=== PATIENT | male | born 1960 | race Caucasian/White ===

== ENCOUNTER 2017-05-13 16:47 | Observation (INO) | payer MEDICAID ==
[~2017-05-13] VITALS: Ht 180.3 cm; Wt 58.0 kg
[~2017-05-13 16:47] MED LIST: ALBU8I INH; OMEP20TA39 PO; ZITH250T PO
[2017-05-13 16:59] VITALS: BP 132/90; PULSE 100; RESP 24; TEMP 97.4; O2SAT 100
--- NOTE | 2017-05-13 17:02 | PD ---
Physical Exam Time Seen by Provider: 17:00 Narrative 56yo M c/o "severe dehydration." Reports "cramping everywhere." Vomited water a few minutes after drinking it. Increased SOB, more than NL w/ COPD. Unknown fever. Patient seen in triage. VS reviewed. Awaiting bed placement. MDM Supervised Visit with IFTIKHAR: Tabby Mustafa May 13, 2017 17:02
[2017-05-13] MEDS ORDERED: SODIUM CHLOR 0.9% 1000 ML INJ 1,000 ML IV ONE ×3 (17:17→19:15)
[2017-05-13 17:20] VITALS: O2SAT 96
--- NOTE | 2017-05-13 17:23 | PD ---
HPI Chief Complaint: General Weakness Time Seen by Provider: 17:18 Travel History International Travel<30 days: No Contact w/Intl Traveler<30days: No Traveled to known affect area: No History of Present Illness HPI 56-year-old male presents to the emergency department for evaluation of muscle cramping. Patient states he feels dehydrated. He states he recently started working a job where he is out in the heat. He states he started to feel this way yesterday, but went to work today anyway and symptoms worsened despite drinking water. He states that he did vomit just prior to coming in the emergency department. Patient with history of dehydration with similar symptoms. He denies any fevers or chills. No chest pain or shortness of breath. No abdominal pain. Patient reports history of COPD. PFSH Past Medical History Heart Rhythm Problems: No Cardiac Catheterization: Yes Cardiovascular Problems: Yes (5 [place]) High Cholesterol: No Chest Pain: Yes Congestive Heart Failure: No COPD: Yes Coronary Artery Disease: Yes Diabetes: No Diminished Hearing: No Hypertension: No Respiratory: Yes Myocardial Infarction: Yes (2011) Past Surgical History Coronary Artery Bypass Graft: No Social History Alcohol Use: Yes (4 BEER DAILY) Tobacco Use: Yes (1-2 PPD) Substance Use: No Allergies-Medications (Allergen,Severity, Reaction): Coded Allergies: No Known Allergies (Unverified , 02/24/16) Reported Meds & Prescriptions Reported Meds & Active Scripts Active Reported Flexeril (Cyclobenzaprine HCl) 5 Mg Tab 5 Mg PO TID Review of Systems Except as stated in HPI: all other systems reviewed are Neg Physical Exam Narrative GENERAL: Well-nourished, well-developed male patient, afebrile. SKIN: Focused skin assessment warm/dry. HEAD: Normocephalic. Atraumatic. EYES: No scleral icterus. No injection or drainage. NECK: Supple, trachea midline. No JVD or lymphadenopathy. CARDIOVASCULAR: Regular rate and rhythm without murmurs, gallops, or rubs. RESPIRATORY: Breath sounds equal bilaterally. No accessory muscle use. Lungs sounds are clear to auscultation. GASTROINTESTINAL: Abdomen soft, non-tender, nondistended. MUSCULOSKELETAL: No cyanosis, or edema. BACK: Nontender without obvious deformity. No CVA tenderness. Data Data Last Documented VS Vital Signs Date Time Temp Pulse Resp B/P Pulse Ox O2 Delivery O2 Flow Rate FiO2 7/7/17 17:20 96 Room Air 05/13/17 16:59 97.4 100 24 132/90 Orders Complete Blood Count With Diff (05/13/17 17:17) Comprehensive Metabolic Panel (05/13/17 17:17) Magnesium (Mg) (05/13/17 17:17) Urinalysis - C+S If Indicated (05/13/17 17:17) Ecg Monitoring (05/13/17 17:17) Iv Access Insert/Monitor (05/13/17 17:17) Oximetry (05/13/17 17:17) Sodium Chloride 0.9% Flush (Ns Flush) (05/13/17 17:30) Sodium Chlor 0.9% 1000 Ml Inj (Ns 1000 M (05/13/17 17:17) Creatine Kinase (Cpk) (05/13/17 17:17) Ondansetron Inj (Zofran Inj) (05/13/17 17:30) CKMB (05/13/17 17:30) CKMB% (05/13/17 17:30) Sodium Chlor 0.9% 1000 Ml Inj (Ns 1000 M (05/13/17 19:15) Sodium Chlor 0.9% 1000 Ml Inj (Ns 1000 M (05/13/17 19:15) Admit Order (Ed Use Only) (05/13/17 19:27) Labs Laboratory Tests Test 05/13/17 17:30 White Blood Count 11.0 TH/MM3 Red Blood Count 5.24 MIL/MM3 Hemoglobin 15.8 GM/DL Hematocrit 47.4 % Mean Corpuscular Volume 90.5 FL Mean Corpuscular Hemoglobin 30.2 PG Mean Corpuscular Hemoglobin 33.4 % Concent Red Cell Distribution Width 14.2 % Platelet Count 229 TH/MM3 Mean Platelet Volume 7.7 FL Neutrophils (%) (Auto) 79.6 % Lymphocytes (%) (Auto) 6.3 % Monocytes (%) (Auto) 12.4 % Eosinophils (%) (Auto) 0.9 % Basophils (%) (Auto) 0.8 % Neutrophils # (Auto) 8.7 TH/MM3 Lymphocytes # (Auto) 0.7 TH/MM3 Monocytes # (Auto) 1.4 TH/MM3 Eosinophils # (Auto) 0.1 TH/MM3 Basophils # (Auto) 0.1 TH/MM3 CBC Comment DIFF FINAL Differential Comment Sodium Level 128 MEQ/L Potassium Level 3.9 MEQ/L Chloride Level 85 MEQ/L Carbon Dioxide Level 29.9 MEQ/L Anion Gap 13 MEQ/L Blood Urea Nitrogen 19 MG/DL Creatinine 2.10 MG/DL Estimat Glomerular Filtration 33 ML/MIN Rate Random Glucose 107 MG/DL Calcium Level 10.4 MG/DL Magnesium Level 1.8 MG/DL Total Bilirubin 1.5 MG/DL Aspartate Amino Transf 51 U/L (AST/SGOT) Alanine Aminotransferase 28 U/L (ALT/SGPT) Alkaline Phosphatase 69 U/L Total Creatine Kinase 945 U/L Creatine Kinase MB 8.7 NG/ML Creatine Kinase MB % 0.9 % Total Protein 10.0 GM/DL Albumin 5.6 GM/DL [facility] Medical Decision Making Medical Screen Exam Complete: Yes Emergency Medical Condition: Yes Medical Record Reviewed: Yes Differential Diagnosis Dehydration versus electrolyte abnormality versus TORITO versus muscle spasm Narrative Course 56 year old male presents to the emergency department for evaluation of feeling dehydrated. CBC, CMP, Magnesium, CK, UA are ordered and pending. Patient is given NS 1 L IV bolus, Zofran 4 mg IV. CBC shows normal WBC count 11.0, neutrophils 79.6. CMP shows hyponatremia 128, BUN 19, currently 2.10, bilirubin 1.5. Magnesium is 1.8. CK is 945. Previous BUN and creatinine was done on January 09, 2015 which showed a BUN of 14, creatinine 0.65. Patient will be admitted to the hospital for rhabdomyolysis, dehydration, heat exhaustion. The patient verbalizes agreement to this. Residents accepted admission. Diagnosis Primary Impression: Heat exhaustion Qualified Code: T67.5XXA - Heat exhaustion, initial encounter Additional Impressions: Dehydration Rhabdomyolysis Qualified Code: M62.82 - Non-traumatic rhabdomyolysis Admitting Information Admitting Physician Requests: Observation Inge Montenegro May 13, 2017 17:23 Inge Montenegro May 13, 2017 17:23
[2017-05-13] MEDS ORDERED: ONDANSETRON HCL 4 MG/2 ML VIAL IV PUSH ONE (17:30)
[2017-05-13] MEDS ORDERED: SODIUM CHLORIDE 0.9% FLUSH 10 ML FLUSH IVF PRN (17:30)
[2017-05-13] MEDS ORDERED: CYCL5TAB PO (18:04)
[2017-05-13 18:10] LABS: AUTOMATED NEUTROPHIL # 8.7 TH/MM3 (1.8-7.7); BASOPHIL # 0.1 TH/MM3 (0-0.2); BASOPHIL % 0.8 % (0.0-2.0); EOSINOPHIL # 0.1 TH/MM3 (0-0.4); EOSINOPHIL % 0.9 % (0.0-4.0); HEMATOCRIT 47.4 % (39.0-51.0); HEMO FLAGS DIFF FINAL; LYMPH % 6.3 % (9.0-44.0); LYMPHOCYTE # 0.7 TH/MM3 (1.0-4.8); MEAN CELL VOLUME 90.5 FL (80.0-100.0); MEAN CORPUSCULAR HEMOGLOBIN 30.2 PG (27.0-34.0); MEAN CORPUSCULAR HGB CONC 33.4 % (32.0-36.0); MONO % 12.4 % (0.0-8.0); NEUT % 79.6 % (16.0-70.0); PLATELET COUNT 229 TH/MM3 (150-450); RED BLOOD COUNT 5.24 MIL/MM3 (4.50-5.90); RED CELL DISTRIBUTION WIDTH 14.2 % (11.6-17.2)
[2017-05-13 18:32] LABS: ANION GAP 13 MEQ/L (5-15); AST (GOT) 51 U/L (15-37); BICARBONATE 29.9 MEQ/L (21.0-32.0); BLOOD UREA NITROGEN 19 MG/DL (7-18); CHLORIDE 85 MEQ/L (98-107); GLOMERULAR FILTRATION RATE 33 ML/MIN (>89); MAGNESIUM 1.8 MG/DL (1.5-2.5); POTASSIUM 3.9 MEQ/L (3.5-5.1); SODIUM (NA) 128 MEQ/L (136-145)
[2017-05-13 18:33] LABS: ALT (GPT) 28 U/L (12-78)
[2017-05-13 18:35] LABS: ALKALINE PHOSPHATASE 69 U/L (45-117); CREATINE KINASE 945 U/L (39-308); TOTAL BILIRUBIN ADULT 1.5 MG/DL (0.2-1.0)
[2017-05-13 18:52] LABS: CKMB 8.7 NG/ML (0.5-3.6)
[2017-05-13 19:25] LABS: BLOOD, URINE SMALL (NEG); COMMENT (UR) CULT NOT INDICATED; CULTURE IF INDICATED CULT NOT INDICATED; GLUCOSE,URINE NEG (NEG); HYALINE CAST, URINE 49 /lpf (RARE); KETONE, URINE 10 mg/dL (NEG); MUCUS URINE FEW /lpf (OCC); NITRITE,URINE NEG (NEG); SQUAMOUS EPITHELIAL CELL URINE 1 /hpf (0-5); URINE COLOR YELLOW (YELLW/STRAW)
--- NOTE | 2017-05-13 21:28 | HHI.HP ---
[facility] Service Family Medicine Primary Care Physician Sánchez Galan, DO Admission Diagnosis heat exhaustion, dehydration, rhabdomyolysis Diagnoses: International Travel<30 Days: No Contact w/Intl Traveler<30days: No Known Affected Area: No History of Present Illness Patient is a 56 year old male with a PMH significant for COPD/Emphysema and remote IN who presents to the ED via [facility] after feeling light he had heat exhaustion. Symptoms initially started yesterday afternoon with cramps and feeling generally unwell; he couldn't sleep and was up since 2am. 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 He was sweating but felt chills. He had some episodes of dizziness this morning but did not pass out. No headache. No fall. He attempted to consume some water and began vomiting so he knew he needed to be evaluated. He has a history of heat exhaustion and notes he rides a bike to get around. He feels better now that he has had 3L bolus in ED. No more cramps. (Kary Keyes MD R1) Review of Systems Constitutional: COMPLAINS OF: Diaphoretic episodes, Chills, Dizziness, DENIES : Fever Eyes: DENIES: Blurred vision, Diplopia Ears, nose, mouth, throat: DENIES: Throat pain, Hoarseness Respiratory: DENIES: Cough, Hemoptysis Cardiovascular: DENIES: Chest pain, Palpitations, Syncope Gastrointestinal: COMPLAINS OF: Nausea, Vomiting, DENIES: Abdominal pain, Black stools, Bloody stools, Constipation, Diarrhea Genitourinary: DENIES: Urgency, Hematuria, Dysuria, Nocturia Musculoskeletal: COMPLAINS OF: Back pain, DENIES: Joint pain, Muscle aches Integumentary: DENIES: Rash Hematologic/lymphatic: DENIES: Bruising, Lymphadenopathy Neurologic: DENIES: Abnormal gait, Headache, Poor Balance Psychiatric: DENIES: Anxiety, Depression (Kary Keyes MD R1) Past Family Social History Past Medical History COPD/Emphysema Heart attack - years ago Past Surgical History None Reported Medications Symbicort Albuterol Flexeril 10mg BID (Kary Keyes MD R1) Allergies: Coded Allergies: No Known Allergies (Unverified , 02/24/16) Family History None reported Social History Cigarettes 1.5 ppd, 45 years Alcohol 2 beers night Illicit denies (Kary Keyes MD R1) Physical Exam Vital Signs Vital Signs Date Time Temp Pulse Resp B/P Pulse Ox O2 Delivery O2 Flow Rate FiO2 05/13/17 17:20 96 Room Air 05/13/17 17:13 Room Air 05/13/17 16:59 97.4 100 24 132/90 100 Room Air Physical Exam GENERAL: Thin, otherwise well-appearing male in a good mood sitting up in bed. Asking for food. SKIN: Warm and dry. No obvious rashes. The skin is dry. HEAD: Atraumatic. Normocephalic. EYES: Pupils equal and round. No scleral icterus. No injection or drainage. ENT: No nasal bleeding or discharge. Mucous membranes pink and moist. NECK: Trachea midline. No JVD. CARDIOVASCULAR: Regular rate and rhythm. There are no murmurs, gallops, or rubs. There are normal 2+ pulses in the upper and lower extremities. Capillary refill is brisk. RESPIRATORY: No accessory muscle use. Clear to auscultation. Breath sounds equal bilaterally. GASTROINTESTINAL: Abdomen soft, thin, non-tender, nondistended. Hepatic and splenic margins not palpable. MUSCULOSKELETAL: Extremities without clubbing, cyanosis, or edema. No obvious deformities. He has some mild tenderness to palpation of the lower lumbar spine , with no step-off noted. NEUROLOGICAL: Awake and alert. [employer] 212 intact Motor grossly within normal limits. Five out of 5 muscle strength in the arms and legs. Normal speech. Normal gait. PSYCHIATRIC: Appropriate mood and affect; insight and judgment normal. Laboratory Laboratory Tests Test 05/13/17 05/13/17 17:30 18:39 White Blood Count 11.0 Red Blood Count 5.24 Hemoglobin 15.8 Hematocrit 47.4 Mean Corpuscular Volume 90.5 Mean Corpuscular Hemoglobin 30.2 Mean Corpuscular Hemoglobin 33.4 Concent Red Cell Distribution Width 14.2 Platelet Count 229 Mean Platelet Volume 7.7 Neutrophils (%) (Auto) 79.6 Lymphocytes (%) (Auto) 6.3 Monocytes (%) (Auto) 12.4 Eosinophils (%) (Auto) 0.9 Basophils (%) (Auto) 0.8 Neutrophils # (Auto) 8.7 Lymphocytes # (Auto) 0.7 Monocytes # (Auto) 1.4 Eosinophils # (Auto) 0.1 Basophils # (Auto) 0.1 CBC Comment DIFF FINAL Differential Comment Sodium Level 128 Potassium Level 3.9 Chloride Level 85 Carbon Dioxide Level 29.9 Anion Gap 13 Blood Urea Nitrogen 19 Creatinine 2.10 Estimat Glomerular Filtration 33 Rate Random Glucose 107 Calcium Level 10.4 Magnesium Level 1.8 Total Bilirubin 1.5 Aspartate Amino Transf 51 (AST/SGOT) Alanine Aminotransferase 28 (ALT/SGPT) Alkaline Phosphatase 69 Total Creatine Kinase 945 Creatine Kinase MB 8.7 Creatine Kinase MB % 0.9 Total Protein 10.0 Albumin 5.6 Urine Color YELLOW Urine Turbidity HAZY Urine pH 6.0 Urine Specific [place] 1.018 Urine Protein 100 Urine Glucose (UA) NEG Urine Ketones 10 Urine Occult Blood SMALL Urine Nitrite NEG Urine Bilirubin SMALL Urine Urobilinogen 2.0 Urine Leukocyte Esterase NEG Urine RBC 3 Urine WBC 3 Urine Squamous Epithelial 1 Cells Urine Hyaline Casts 49 Urine Mucus FEW Microscopic Urinalysis Comment CULT NOT INDICATED (Kary Keyes MD R1) Result Diagram: 05/13/17172905/13/17 173 Assessment and Plan Assessment and Plan 56-year-old male with a history of COPD who presents with severe muscle aches after prolonged outdoor heat exposure. He is noted to have significant TORITO on admission and is admitted for observation to rehydrate and monitor kidney function. Code Status Alternative Code: wants chest compressions, ACLS medications, shock. NO intubation. Discussed Condition With Dr. Person, PGY1 (Kary Keyes MD R1) Attending Attestation THIS CASE WAS DISCUSSED WITH THE RESIDENT PHYSICIAN. I HAVE REVIEWED THE RECORD AND AGREE WITH THE ABOVE NOTE AND PLAN OF CARE WAS DISCUSSED. I HAVE AUTHORIZED THE ORDER FOR PLACEMENT IN OUT-PATIENT OBSERVATION STATUS. ( Viktoria Yeboah MD) Problem List: (1) Dehydration Status: Acute Plan: Patient presents to the ED with severe muscle cramps and is noted to have TORITO. He is status post 3 L bolus in ED Symptomatically has improved in the ED. Vital signs are within normal limits aside from mild tachycardia on arrival which resolved Heat exhaustion is lower on differential given normal vital signs, normal neuro exam, and resolution of cramps after hydration Risk factors include dehydration, working in high temperature/limited environment. Patient is noted to have muscle cramps with normal CK. Sodium is mildly decreased on admission but potassium is within normal limits. No evidence of neurologic or cardiac sequela on admission. Plan: Continue IVF at 125cc/hr, decrease or discontinue after BMP recheck if indicated Monitor BMP closely for resolution of TORITO CK elevated at 945 on admission, will recheck (2) Acute kidney injury Status: Acute Plan: Creatinine 2.10 on admission, with GFR 33. Likely related to dehydration. Plan: Monitor BMP closely, will get recheck this afternoon IV fluids as above Consider renal ultrasound if indicated (3) COPD (chronic obstructive pulmonary disease) Status: Chronic Plan: Patient states he takes Symbicort and albuterol at home O2 saturation 100% on room air and lungs are clear on exam Patient is a chronic smoker of greater than 2 packs per day Plan: Respiratory incentive spirometry Albuterol nebulizer q4hr PRN shortness of breath Consider restart Symbicort tomorrow Nicotine patch Needs smoking cessation counseling (4) Alcohol abuse Status: Chronic Plan: Noted on EMR to have history of alcohol use. He states he drinks 2 beers per night. There is no evidence of withdrawal in EMR records AST/ALT is ratio is greater than 2:1 MCV within normal limits Plan: Monitor for signs of withdrawal Initiate CIWA protocol if indicated (5) Low back pain Status: Chronic Plan: Chronic. States he takes flexeril at home, 10mg BID, holding at this time (6) Hyponatremia Status: Acute Plan: Noted on admission. No previous abnormalities and sodium levels in EMR. Plan: We will rehydrate with NS given AK, and monitor sodium levels closely If indicated, will consider fluid restriction (7) Fluids/Electrolytes/Nutrition/Prophylaxis Status: Acute Plan: Fluids: tolerating PO/NS @ 125ml/hr Electrolytes: monitor and replete as needed Nutrition: regular diet DVT Prophylaxis: Early ambulation. Lovenox 40mg subQ q24hr GI Prophylaxis: not indicated (Kary Keyes MD R1) Problem Qualifiers (1) COPD (chronic obstructive pulmonary disease): Qualified Code: J43.9 - Pulmonary emphysema, unspecified emphysema type (2) Low back pain: Qualified Code: M54.5 - Chronic midline low back pain without sciatica Kary Keyes MD R1 May 13, 2017 21:28 Viktoria Yeboah MD May 14, 2017 12:24
[2017-05-13] MEDS: SODIUM CHLOR 0.9% 1000 ML INJ 1,000 ML IV SCH (21:30)
[2017-05-13 22:29] VITALS: BP 128/84; PULSE 89; RESP 18; O2SAT 99
[2017-05-14 00:25] VITALS: BP 115/68; PULSE 81; RESP 18; TEMP 98.2; O2SAT 97
[2017-05-14 01:42] LABS: BICARBONATE 27.5 MEQ/L (21.0-32.0)
[2017-05-14 01:44] LABS: POTASSIUM 3.9 MEQ/L (3.5-5.1)
[2017-05-14] MEDS ORDERED: RESP: ALBUTEROL 2.5 MG/3 ML NEB (PRN) INH (02:30)
[2017-05-14] MEDS ORDERED: NALOXONE HCL 0.4 MG/ML AMP IV PRN (02:45)
[2017-05-14] MEDS ORDERED: SENNOSIDES 8.6 MG TAB PO PRN (02:45)
[2017-05-14] MEDS ORDERED: BISACODYL 10 MG SUPP RECTAL PRN (02:45)
[2017-05-14] MEDS ORDERED: LACTULOSE SYRUP 20 GM/30 ML CUP PO PRN (02:45)
[2017-05-14] MEDS ORDERED: ACETAMINOPHEN 325 MG TAB PO PRN (02:45)
[2017-05-14] MEDS ORDERED: MAGNESIUM HYDROXIDE SUSP 30 ML CUP PO PRN (02:45)
[2017-05-14 04:36] VITALS: BP 118/70; PULSE 80; RESP 18; TEMP 98; O2SAT 100
[2017-05-14] MEDS: SODIUM CHLOR 0.9% 1000 ML INJ 1,000 ML IV SCH (05:16)
[2017-05-14 06:15] VITALS: O2SAT 100
[2017-05-14 07:04] LABS: AUTOMATED NEUTROPHIL # 3.4 TH/MM3 (1.8-7.7); BASOPHIL # 0.1 TH/MM3 (0-0.2); BASOPHIL % 0.8 % (0.0-2.0); EOSINOPHIL # 0.7 TH/MM3 (0-0.4); EOSINOPHIL % 10.6 % (0.0-4.0); HEMATOCRIT 38.7 % (39.0-51.0); HEMO FLAGS DIFF FINAL; LYMPH % 20.9 % (9.0-44.0); LYMPHOCYTE # 1.3 TH/MM3 (1.0-4.8); MEAN CELL VOLUME 90.8 FL (80.0-100.0); MEAN CORPUSCULAR HEMOGLOBIN 29.6 PG (27.0-34.0); MEAN CORPUSCULAR HGB CONC 32.6 % (32.0-36.0); MONO % 14.3 % (0.0-8.0); NEUT % 53.4 % (16.0-70.0); PLATELET COUNT 174 TH/MM3 (150-450); RED BLOOD COUNT 4.26 MIL/MM3 (4.50-5.90); WHITE BLOOD COUNT 6.4 TH/MM3 (4.0-11.0)
[2017-05-14 07:42] LABS: ALKALINE PHOSPHATASE 43 U/L (45-117); ALT (GPT) 18 U/L (12-78); ANION GAP 9 MEQ/L (5-15); AST (GOT) 32 U/L (15-37); BICARBONATE 24.6 MEQ/L (21.0-32.0); BLOOD UREA NITROGEN 19 MG/DL (7-18); CHLORIDE 103 MEQ/L (98-107); GLOMERULAR FILTRATION RATE 111 ML/MIN (>89); POTASSIUM 3.2 MEQ/L (3.5-5.1); SODIUM (NA) 137 MEQ/L (136-145); TOTAL BILIRUBIN ADULT 0.8 MG/DL (0.2-1.0)
[2017-05-14 08:09] VITALS: BP 100/60; PULSE 69; RESP 18; TEMP 98.4; O2SAT 97
[2017-05-14] MEDS ORDERED: SYMB160A INH (08:46)
--- NOTE | 2017-05-14 08:47 | HHI.DCPOC ---
Discharge Care Plan Diagnosis: (1) Heat exhaustion due to water depletion (2) Acute kidney injury (3) Dehydration Goals to Promote Your Health * To prevent worsening of your condition and complications * To maintain your health at the optimal level Directions to Meet Your Goals Take your medications as prescribed Follow your dietary instruction Follow activity as directed Keep your appointments as scheduled Take your immunizations and boosters as scheduled If your symptoms worsen call your PCP, if no PCP go to Urgent Care Center or Emergency Room Smoking is Dangerous to Your Health. Avoid second hand smoke Call the 24-hour hour crisis hotline for domestic abuse at Latoya Tolentino MD R2 May 14, 2017 08:47
[2017-05-14] MEDS ORDERED: POTASSIUM CHLORIDE 20 MEQ CONTROLLED RELEASE TAB PO ONE (09:00)
[2017-05-14] MEDS ORDERED: REMOVE OLD PATCH T-DERMAL SCH (09:00)
[2017-05-14] MEDS ORDERED: DOCUSATE SODIUM 50 MG/SENNA 8.6 MG TAB PO SCH (09:00)
[2017-05-14] MEDS ORDERED: NICOTINE 21 MG/24 HR PATCH T-DERMAL SCH (09:00)
[2017-05-14] MEDS ORDERED: ENOXAPARIN SODIUM 40 MG/0.4 ML SYRINGE SQ SCH (09:00)
== END 2017-05-14 10:43 | disposition home or self-care (01) ==
LOC: NEPD 16:47 → NEDA 19:31 → NEPFCDU 23:57
PROVIDERS: ADMIT Family Medicine; ATTEND Family Medicine
DX: E86.0 Dehydration (principal); N17.9 Acute kidney failure, unspecified; I25.10 Atherosclerotic heart disease of native coronary artery without angina pectoris; J44.9 Chronic obstructive pulmonary disease, unspecified; F10.10 Alcohol abuse, uncomplicated; M54.5 Low back pain; E87.1 Hypo-osmolality and hyponatremia; M62.82 Rhabdomyolysis; R68.83 Chills (without fever); R61 Generalized hyperhidrosis; R11.2 Nausea with vomiting, unspecified; M54.9 Dorsalgia, unspecified; R00.0 Tachycardia, unspecified; R74.8 Abnormal levels of other serum enzymes; I25.2 Old myocardial infarction; F17.200 Nicotine dependence, unspecified, uncomplicated; T67.3XXA Heat exhaustion, anhydrotic, initial encounter
CPT/HCPCS: 80048; 80053; 81001; 82550; 82552; 83735; 85025; 96361; 96374; 99285; G0378; J1650; J2405; J7030

== ENCOUNTER 2017-07-22 02:40 | Observation (INO) | payer MEDICAID ==
[~2017-07-22] VITALS: Ht 180.3 cm; Wt 60.0 kg
[~2017-07-22 02:40] MED LIST changes: -ALBU8I INH; +CYCL5TAB PO; -OMEP20TA39 PO; +SYMB160A INH; -ZITH250T PO
[2017-07-22] MEDS ORDERED: ONDANSETRON HCL 4 MG/2 ML VIAL IV PUSH ONE (05:00)
[2017-07-22] MEDS ORDERED: SODIUM CHLORIDE 0.9% FLUSH 10 ML FLUSH IVF PRN (05:00)
[2017-07-22] MEDS ORDERED: MORPHINE SULFATE 4 MG/ML INJ IV PUSH ONE (05:00)
[2017-07-22] MEDS ORDERED: ASPIRIN 81 MG CHEW TAB PO ONE (05:00)
[2017-07-22 05:26] LABS: APTT (PATIENT) 27.5 SEC (24.3-30.1); AUTOMATED NEUTROPHIL # 7.1 TH/MM3 (1.8-7.7); BASOPHIL # 0.1 TH/MM3 (0-0.2); BASOPHIL % 0.6 % (0.0-2.0); EOSINOPHIL # 0.2 TH/MM3 (0-0.4); EOSINOPHIL % 1.5 % (0.0-4.0); HEMATOCRIT 38.8 % (39.0-51.0); HEMO FLAGS DIFF FINAL; INTERNATIONAL NORMALIZED RATIO 0.9 RATIO; LYMPH % 16.2 % (9.0-44.0); LYMPHOCYTE # 1.6 TH/MM3 (1.0-4.8); MEAN CELL VOLUME 90.4 FL (80.0-100.0); MEAN CORPUSCULAR HEMOGLOBIN 30.9 PG (27.0-34.0); MEAN CORPUSCULAR HGB CONC 34.2 % (32.0-36.0); MONO % 9.2 % (0.0-8.0); NEUT % 72.5 % (16.0-70.0); PLATELET COUNT 236 TH/MM3 (150-450); RED CELL DISTRIBUTION WIDTH 13.6 % (11.6-17.2); WHITE BLOOD COUNT 9.8 TH/MM3 (4.0-11.0)
[2017-07-22 05:45] VITALS: BP 135/61; PULSE 81; RESP 16; TEMP 98.4; O2SAT 100
--- NOTE | 2017-07-22 05:48 | RADRPT ---
EXAM DATE/TIME: 07/22/2017 05:15 [facility] COMPARISON: CHEST SINGLE AP, January 09, 2015, 22:10. INDICATIONS : Left side chest pain MEDICAL HISTORY : None. SURGICAL HISTORY : None. ENCOUNTER: Initial ACUITY: 1 day PAIN SCORE: 7/10 LOCATION: Bilateral chest FINDINGS: A single view of the chest demonstrates biapical emphysematous changes particularly on the right with some regional parenchymal scarring. Lungs are otherwise clear without acute infiltrate. No effusion. Heart size is normal. Osseous structures are intact with old healed left-sided rib fractures. Also n oted is some atherosclerotic calcification in the region of the carotid arteries CONCLUSION: 1. Stable biapical emphysematous changes, particularly on the right. 2. Lungs are otherwise clear without acute infiltrate or effusion. 3. Old healed upper posterior rib fractures on the left Lee Bhandari MD on July 22, 2017 at 5:44 Board Certified Radiologist. This report was verified electronically.
[2017-07-22 05:52] VITALS: BP 135/61; PULSE 86; RESP 16; O2SAT 100
[2017-07-22 05:53] LABS: ALT (GPT) 24 U/L (12-78); ANION GAP 17 MEQ/L (5-15); AST (GOT) 26 U/L (15-37); BICARBONATE 21.5 MEQ/L (21.0-32.0); BLOOD UREA NITROGEN 30 MG/DL (7-18); CHLORIDE 94 MEQ/L (98-107); GLOMERULAR FILTRATION RATE 30 ML/MIN (>89); POTASSIUM 3.3 MEQ/L (3.5-5.1); SODIUM (NA) 132 MEQ/L (136-145)
[2017-07-22 05:57] LABS: ALKALINE PHOSPHATASE 65 U/L (45-117); CREATINE KINASE 238 U/L (39-308); TOTAL BILIRUBIN ADULT 0.4 MG/DL (0.2-1.0)
[2017-07-22] MEDS ORDERED: SODIUM CHLOR 0.9% 1000 ML INJ 1,000 ML IV ONE (06:00)
[2017-07-22 06:10] LABS: CKMB 3.2 NG/ML (0.5-3.6)
--- NOTE | 2017-07-22 06:39 | RADRPT ---
EXAM DATE/TIME: 07/22/2017 06:03 [facility] COMPARISON: No previous studies available for comparison. INDICATIONS : Diffuse abdominal pain with vomiting. ORAL CONTRAST: No oral contrast ingested. RADIATION DOSE: 6.64 CTDIvol (mGy) MEDICAL HISTORY : Myocardial infarction. Chronic obstructive pulmonary disease. CAD. SURGICAL HISTORY : None. ENCOUNTER: Initial ACUITY: 1 day PAIN SCALE: 4/10 LOCATION: All quadrants. TECHNIQUE: Volumetric scanning of the abdomen and pelvis was performed. Using automated exposure control and ad justment of the mA and/or kV according to patient size, radiation dose was kept as low as reasonably achievable to obtain optimal diagnostic quality images. DICOM format image data is available electro nically for review and comparison. FINDINGS: LOWER LUNGS: Mild atelectatic changes in the right base. Left base is clear. LIVER: Homogeneous, but decreased density without lesion. There is no dilation of the biliary tree. No flavio cified gallstones. SPLEEN: Normal size without lesion. Granulomatous type calcifications in the splenic parenchyma PANCREAS: Within normal limits. KIDNEYS: Normal in size and shape. There is no mass, stone, or hydronephrosis. ADRENAL GLANDS: Within normal limits. VASCULAR: There is no aortic aneurysm. BOWEL/MESENTERY: The stomach, small bowel, and colon demonstrate no acute abnormality. There is no free intraperitone al air or fluid. I believe I can identify the vermiform appendix which is radiographically normal. ABDOMINAL WALL: Within normal limits. RETROPERITONEUM: There is no lymphadenopathy. BLADDER: No wall thickening or mass. REPRODUCTIVE: Within normal limits. INGUINAL: There is no lymphadenopathy or hernia. MUSCULOSKELETAL: Dextroscoliosis of the thoracolumbar spine with associated degenerative spurring. CONCLUSION: 1. Diffuse hepatic fatty infiltration. 2. Old granulomatous disease in the splenic parenchyma. 3. Otherwise, no acute intraperitoneal or pelvic process to explain current clinical symptoms. Lee Bhandari MD on July 22, 2017 at 6:34 Board Certified Radiologist. This report was verified electronically.
[2017-07-22] MEDS ORDERED: SODIUM CHLORIDE 0.9% FLUSH 10 ML FLUSH IV FLUSH PRN (06:45)
[2017-07-22] MEDS ORDERED: NALOXONE HCL 0.4 MG/ML AMP IV PUSH PRN (06:45)
--- NOTE | 2017-07-22 06:51 | PD ---
HPI Chief Complaint: Chest Pain Time Seen by Provider: 03:44 Travel History International Travel<30 days: No Contact w/Intl Traveler<30days: No Traveled to known affect area: No History of Present Illness HPI Patient is a 56-year-old male who comes in complaining of chest pain and abdominal pain. He says he started vomiting at work around 5 PM. He says he has vomited several times, and then he developed left-sided chest pain. He denies fever or chills. He denies cough or cold. He says he feels a little short of breath. He received nitroglycerin and aspirin by EMS with some improvement of his symptoms. PFSH Past Medical History Heart Rhythm Problems: No Cardiac Catheterization: Yes Cardiovascular Problems: Yes (ID) High Cholesterol: No Chest Pain: Yes Congestive Heart Failure: No COPD: Yes Coronary Artery Disease: Yes Diabetes: No Diminished Hearing: No Hypertension: No Respiratory: Yes Myocardial Infarction: Yes (2011) Tetanus Vaccination: < 5 Years Influenza Vaccination: Yes Past Surgical History Coronary Artery Bypass Graft: No Social History Alcohol Use: Yes Tobacco Use: Yes Substance Use: No ([facility]) Allergies-Medications (Allergen,Severity, Reaction): Coded Allergies: No Known Allergies (Unverified , 02/24/16) Reported Meds & Prescriptions Reported Meds & Active Scripts Active Reported Symbicort Inh (Budesonide/Formoterol Fumarate) 160-4.5 Mcg/Act Aero 1 Puff INH Q12HR Flexeril (Cyclobenzaprine HCl) 5 Mg Tab 5 Mg PO TID Review of Systems Except as stated in HPI: all other systems reviewed are Neg General / Constitutional: No: Fever, Chills HENT: No: Headaches, Lightheadedness Cardiovascular: Positive: Chest Pain or Discomfort Respiratory: Positive: Shortness of Breath Gastrointestinal: Positive: Nausea, Vomiting, Abdominal Pain Genitourinary: No: Dysuria Musculoskeletal: No: Myalgias, Edema Skin: No Rash, No Change in Pigmentation Neurologic: No: Weakness, Dizziness Physical Exam Narrative GENERAL: Awake and alert, in no acute distress. SKIN: Focused skin assessment warm/dry. HEAD: Atraumatic. Normocephalic. EYES: Pupils equal and round. No scleral icterus. ENT: Mucous membranes pink and moist. NECK: Trachea midline. No JVD. CARDIOVASCULAR: Regular rate and rhythm. No murmur appreciated. RESPIRATORY: No accessory muscle use. Clear to auscultation. Breath sounds equal bilaterally. GASTROINTESTINAL: Abdomen soft, nondistended. Diffuse tenderness to palpation, no rebound or guarding. MUSCULOSKELETAL: No obvious deformities. No clubbing. No cyanosis. No edema. NEUROLOGICAL: Awake and alert. No obvious cranial nerve deficits. Motor grossly within normal limits. Normal speech. PSYCHIATRIC: Appropriate mood and affect; insight and judgment normal. Data Data Last Documented VS Vital Signs Date Time Temp Pulse Resp B/P (MAP) Pulse Ox O2 Delivery O2 Flow Rate FiO2 07/22/17 05:52 100 Room Air 07/22/17 05:52 86 16 135/61 (85) 100 07/22/17 05:45 98.4 Orders Orders Ckmb (Isoenzyme) Profile (07/22/17 04:51) Complete Blood Count With Diff (07/22/17 04:51) Comprehensive Metabolic Panel (07/22/17 04:51) Prothrombin Time / Inr (Pt) (07/22/17 04:51) Act Partial Throm Time (Ptt) (07/22/17 04:51) Troponin I (07/22/17 04:51) Lipase (07/22/17 04:51) Chest, Single Ap (07/22/17 04:51) Ecg Monitoring (07/22/17 04:51) Bilateral Bp Monitoring (07/22/17 04:51) Iv Access Insert/Monitor (07/22/17 04:51) Oximetry (07/22/17 04:51) Oxygen Administration (07/22/17 04:51) Aspirin Chew (Aspirin Chew) (07/22/17 05:00) Morphine Inj (Morphine Inj) (07/22/17 05:00) Sodium Chloride 0.9% Flush (Ns Flush) (07/22/17 05:00) Ondansetron Inj (Zofran Inj) (07/22/17 05:00) Ct Abd/Pel W/O Iv Contrast (07/22/17 ) Sodium Chlor 0.9% 1000 Ml Inj (Ns 1000 M (07/22/17 06:00) CKMB (07/22/17 04:57) CKMB% (07/22/17 04:57) Admit Order (Ed Use Only) (07/22/17 ) Labs Laboratory Tests Test 07/22/17 04:57 White Blood Count 9.8 TH/MM3 Red Blood Count 4.30 MIL/MM3 Hemoglobin 13.3 GM/DL Hematocrit 38.8 % Mean Corpuscular Volume 90.4 FL Mean Corpuscular Hemoglobin 30.9 PG Mean Corpuscular Hemoglobin Concent 34.2 % Red Cell Distribution Width 13.6 % Platelet Count 236 TH/MM3 Mean Platelet Volume 8.0 FL Neutrophils (%) (Auto) 72.5 % Lymphocytes (%) (Auto) 16.2 % Monocytes (%) (Auto) 9.2 % Eosinophils (%) (Auto) 1.5 % Basophils (%) (Auto) 0.6 % Neutrophils # (Auto) 7.1 TH/MM3 Lymphocytes # (Auto) 1.6 TH/MM3 Monocytes # (Auto) 0.9 TH/MM3 Eosinophils # (Auto) 0.2 TH/MM3 Basophils # (Auto) 0.1 TH/MM3 CBC Comment DIFF FINAL Differential Comment Prothrombin Time 10.0 SEC Prothromb Time International Ratio 0.9 RATIO Activated Partial Thromboplast Time 27.5 SEC Blood Urea Nitrogen 30 MG/DL Creatinine 2.26 MG/DL Random Glucose 73 MG/DL Total Protein 7.4 GM/DL Albumin 4.0 GM/DL Calcium Level 8.3 MG/DL Alkaline Phosphatase 65 U/L Aspartate Amino Transf (AST/SGOT) 26 U/L Alanine Aminotransferase (ALT/SGPT) 24 U/L Total Bilirubin 0.4 MG/DL Sodium Level 132 MEQ/L Potassium Level 3.3 MEQ/L Chloride Level 94 MEQ/L Carbon Dioxide Level 21.5 MEQ/L Anion Gap 17 MEQ/L Estimat Glomerular Filtration Rate 30 ML/MIN Total Creatine Kinase 238 U/L Creatine Kinase MB 3.2 NG/ML Troponin I LESS THAN 0.02 NG/ML Lipase 116 U/L [facility] Medical Decision Making Medical Screen Exam Complete: Yes Emergency Medical Condition: Yes Medical Record Reviewed: Yes Interpretation(s) ECG shows NSR at 83, no ST elevation or depression, normal intervals Differential Diagnosis ACS versus gastritis versus pancreatitis versus NSTEMI versus STEMI Narrative Course Patient is a 56-year-old male who comes in complaining of chest pain with nausea and vomiting. Exam shows diffuse abdominal tenderness. IV established, labs sent. Patient connected to the monitoring and evaluation advisor. Labs show a creatinine of 2.26. This was less than 2 months ago. Patient given IV fluids, morphine, Zofran. He received aspirin by EMS. Chest x-ray shows no acute abnormalities. CT of the abdomen and pelvis shows no acute abnormalities. Patient will be admitted for management of his chest pain and acute kidney injury. Diagnosis Primary Impression: Acute kidney injury Additional Impression: Chest pain Qualified Codes: R07.9 - Chest pain, unspecified Admitting Information Admitting Physician Requests: Admit Condition: Stable Brittni Garcia MD Jul 22, 2017 06:51
[2017-07-22] MEDS: SODIUM CHLOR 0.9% 1000 ML INJ 1,000 ML IV SCH ×3 (06:56→22:59)
[2017-07-22 07:35] VITALS: BP 125/73; PULSE 80; RESP 24; O2SAT 100
[2017-07-22] MEDS ORDERED: POTASSIUM CHLORIDE 10 MEQ CONTROLLED RELEASE TAB PO ONE (08:15)
[2017-07-22] MEDS: SODIUM CHLORIDE 0.9% FLUSH 10 ML FLUSH IV FLUSH SCH ×2 (09:03→21:00)
[2017-07-22] MEDS: NICOTINE 14 MG/24 HR PATCH T-DERMAL SCH (11:11)
--- NOTE | 2017-07-22 12:20 | EKG ---
Date Performed: 07/22/2017 Time Performed: 02:45:00 PTAGE: 56 years EKG: NORMAL Sinus rhythm RIGHT ATRIAL ABNORMALITY BORDERLINE ECG Since PREVIOUS TRACING , no significant change noted PREVIOUS TRACING DOCTOR: Richard Floyd Interpretating Date/Time 07/22/2017 12:19:49
--- NOTE | 2017-07-22 14:54 | HHI.HP ---
HPI Service [facility] Primary Care Physician Nikhil Gunderson MD Admission Diagnosis Chest Pain, TORITO Diagnoses: Chief Complaint: Chest pain Travel History International Travel<30 Days: No Contact w/Intl Traveler <30 Da: No Traveled to Known Affected Are: No History of Present Illness 56-year-old male with a medical history significant for COPD who presented to the emergency room with complaint of abdominal pain and vomiting that started yesterday evening. He also reported developing chest pain. He states he has been working in the heat believed is related to heat exhaustion. On my evaluation, he reports that he has been pain-free since arrival. He hasn't had any further episodes of vomiting. However he was found to be in acute kidney injury. He denies any known sick contact. No diarrhea. He hasn't had any cough or increased in shortness of breath. Review of Systems Constitutional: DENIES: Fever, Chills Respiratory: DENIES: Cough, Shortness of breath Cardiovascular: COMPLAINS OF: Chest pain Gastrointestinal: COMPLAINS OF: Abdominal pain, Vomiting Except as stated in HPI: all other systems reviewed are Neg Past Family Social History Past Medical History COPD Chronic pain Patient state he has had "heart attacks" in the past. However he's never had a heart catheterization or stent placement. Past Surgical History None Reported Medications Reported Meds & Active Scripts Active Reported Albuterol (Albuterol Sulfate) 2 Mg Tab 2 Mg PO TID [place] (Hydrocodone-Acetaminophen) 10-325 Mg Tab 1 Tab PO BID PRN Symbicort Inh (Budesonide/Formoterol Fumarate) 160-4.5 Mcg/Act Aero 1 Puff INH Q12HR Flexeril (Cyclobenzaprine HCl) 5 Mg Tab 5 Mg PO TID Allergies: Coded Allergies: No Known Allergies (Unverified , 02/24/16) Family History Reviewed and is noncontributory. Social History Patient smoke 1-1/2 pack of cigarettes daily. He also drank 2 beers daily. He denies illicit drug use. Physical Exam Vital Signs Vital Signs Date Time Temp Pulse Resp B/P (MAP) Pulse Ox O2 Delivery O2 Flow Rate FiO2 07/22/17 07:35 80 24 125/73 (90) 100 Nasal Cannula 2.00 07/22/17 05:52 100 Room Air 07/22/17 05:52 86 16 135/61 (85) Room Air 100 07/22/17 05:52 100 07/22/17 05:45 98.4 81 16 135/61 (85) 100 Physical Exam GENERAL: This is a well-nourished, well-developed patient, in no apparent distress. SKIN: No rashes, ecchymoses or lesions. Cool and dry. HEAD: Atraumatic. Normocephalic. No temporal or scalp tenderness. EYES: Pupils equal round and reactive. Extraocular motions intact. No scleral icterus. No injection or drainage. ENT: Nose without bleeding, purulent drainage or septal hematoma. Throat without erythema, tonsillar hypertrophy or exudate. Uvula midline. Airway patent. NECK: Trachea midline. No JVD or lymphadenopathy. Supple, nontender, no meningeal signs. CARDIOVASCULAR: Regular rate and rhythm without murmurs, gallops, or rubs. RESPIRATORY: Clear to auscultation. Breath sounds equal bilaterally. No wheezes , rales, or rhonchi. GASTROINTESTINAL: Abdomen soft, non-tender, nondistended. No hepato-splenomegaly , or palpable masses. No guarding. MUSCULOSKELETAL: Extremities without clubbing, cyanosis, or edema. No joint tenderness, effusion, or edema noted. No calf tenderness. Negative Homans sign bilaterally. NEUROLOGICAL: Awake and alert. Cranial nerves II through XII intact. Motor and sensory grossly within normal limits. Five out of 5 muscle strength in all muscle groups. Normal speech. Laboratory Laboratory Tests Test 07/22/17 04:57 07/22/17 13:00 White Blood Count 9.8 Red Blood Count 4.30 Hemoglobin 13.3 Hematocrit 38.8 Mean Corpuscular Volume 90.4 Mean Corpuscular Hemoglobin 30.9 Mean Corpuscular Hemoglobin Concent 34.2 Red Cell Distribution Width 13.6 Platelet Count 236 Mean Platelet Volume 8.0 Neutrophils (%) (Auto) 72.5 Lymphocytes (%) (Auto) 16.2 Monocytes (%) (Auto) 9.2 Eosinophils (%) (Auto) 1.5 Basophils (%) (Auto) 0.6 Neutrophils # (Auto) 7.1 Lymphocytes # (Auto) 1.6 Monocytes # (Auto) 0.9 Eosinophils # (Auto) 0.2 Basophils # (Auto) 0.1 CBC Comment DIFF FINAL Differential Comment Prothrombin Time 10.0 Prothromb Time International Ratio 0.9 Activated Partial Thromboplast Time 27.5 Blood Urea Nitrogen 30 Creatinine 2.26 Random Glucose 73 Total Protein 7.4 Albumin 4.0 Calcium Level 8.3 Alkaline Phosphatase 65 Aspartate Amino Transf (AST/SGOT) 26 Alanine Aminotransferase (ALT/SGPT) 24 Total Bilirubin 0.4 Sodium Level 132 Potassium Level 3.3 Chloride Level 94 Carbon Dioxide Level 21.5 Anion Gap 17 Estimat Glomerular Filtration Rate 30 Total Creatine Kinase 238 242 Creatine Kinase MB 3.2 Troponin I LESS THAN 0.02 LESS THAN 0.02 Lipase 116 Result Diagram: 07/22/1745607/22/17456 Imaging Last Impressions Chest X-Ray 07/22/171 Signed Impressions: Service Date/Time: Saturday, July 22, 2017 05:15 - CONCLUSION: 1. Stable biapical emphysematous changes, particularly on the right. 2. Lungs are otherwise clear without acute infiltrate or effusion. 3. Old healed upper posterior rib fractures on the left Lee Bhandari MD Abdomen/Pelvis CT 07/22/17 0000 Signed Impressions: Service Date/Time: Saturday, July 22, 2017 06:03 - CONCLUSION: 1. Diffuse hepatic fatty infiltration. 2. Old granulomatous disease in the splenic parenchyma. 3. Otherwise, no acute intraperitoneal or pelvic process to explain current clinical symptoms. Lee Bhandari MD Caprini VTE Risk Assessment Caprini VTE Risk Assessment: No/Low Risk (score <= 1) Caprini Risk Assessment Model Point Value = 1 Point Value = 2 Point Value = 3 Point Value = 5 Age 41-60 Minor surgery BMI > 25 kg/m2 Swollen legs Varicose veins or History of unexplained or recurrent spontaneous Oral contraceptives or hormone replacement Sepsis (< 1 month) Serious lung disease, including pneumonia (< 1 month) Abnormal pulmonary function Acute myocardial infarction Congestive heart failure (< 1 month) History of inflammatory bowel disease Medical patient at bed rest Age 61-74 Arthroscopic surgery Major open surgery (> 45 min) Laparoscopic surgery (> 45 min) Malignancy Confined to bed (> 72 hours) Immobilizing plaster cast Central venous access Age >= 75 History of VTE Family history of VTE Factor V Leiden Prothrombin [id number] Lupus anticoagulant Anticardiolipin antibodies Elevated serum homocysteine Heparin-induced thrombocytopenia Other congenital or acquired thrombophilia Stroke (< 1 month) Elective arthroplasty Hip, pelvis, or leg fracture Acute spinal cord injury (< 1 month) Prophylaxis Regimen Total Risk Factor Score Risk Level Prophylaxis Regimen 0-1 Low Early ambulation 2 Moderate Order ONE of the following: *Sequential Compression Device (SCD) *Heparin 5000 units SQ BID 3-4 Higher Order ONE of the following medications: *Heparin 5000 units SQ TID *Enoxaparin/Lovenox 40 mg SQ daily (WT < 150 kg, CrCl > 30 mL/min) *Enoxaparin/Lovenox 30 mg SQ daily (WT < 150 kg, CrCl > 10-29 mL/min) *Enoxaparin/Lovenox 30 mg SQ BID (WT < 150 kg, CrCl > 30 mL/min) AND/OR *Sequential Compression Device (SCD) 5 or more Highest Order ONE of the following medications: *Heparin 5000 units SQ TID (Preferred with Epidurals) *Enoxaparin/Lovenox 40 mg SQ daily (WT < 150 kg, CrCl > 30 mL/min) *Enoxaparin/Lovenox 30 mg SQ daily (WT < 150 kg, CrCl > 10-29 mL/min) *Enoxaparin/Lovenox 30 mg SQ BID (WT < 150 kg, CrCl > 30 mL/min) AND *Sequential Compression Device (SCD) Assessment and Plan Problem List: (1) Acute kidney injury ICD Code: N17.9 - Acute kidney failure, unspecified Status: Acute Plan: I suspect this is probably related to dehydration. He has been vomiting and states he has been working in the heat. Continue IV fluid. Follow-up BMP in a.m. (2) Atypical chest pain ICD Code: R07.89 - Atypical chest pain Status: Acute Plan: Likely noncardiac. May be secondary to retching/MSK pain. This has completely resolved. - Continue ACS rule out with serial cardiac enzymes and EKG. (3) Dehydration ICD Code: E86.0 - Dehydration Status: Acute Plan: IV fluid as above (4) Tobacco dependency ICD Code: F17.200 - Tobacco dependency Status: Acute Plan: Patient counseled to quit. Assessment and Plan Hypokalemia: Replace and monitor Miguel Ángel Lucas MD Jul 22, 2017 14:54
[2017-07-22 16:50] VITALS: BP 115/72; PULSE 75; RESP 18; TEMP 98.1; O2SAT 96
[2017-07-22] MEDS ORDERED: HYDR-3366 PO (17:07)
[2017-07-22] MEDS ORDERED: ALBU2TAB4 PO (17:10)
[2017-07-22 20:42] VITALS: BP 120/87; PULSE 72; RESP 18; TEMP 98.3; O2SAT 97
[2017-07-22 20:47] LABS: CREATINE KINASE 240 U/L (39-308)
--- NOTE | 2017-07-22 20:52 | EKG ---
Date Performed: 07/22/2017 Time Performed: 18:15:12 PTAGE: 56 years EKG: Sinus rhythm NORMAL ECG No significant change from prior electrocardiogram. PREVIOUS TRACING : 07/22/2017 12.53 DOCTOR: Hudson Sands Interpretating Date/Time 07/22/2017 20:50:05
--- NOTE | 2017-07-22 20:59 | EKG ---
Date Performed: 07/22/2017 Time Performed: 12:53:59 PTAGE: 56 years EKG: Sinus rhythm POSSIBLE LEFT ATRIAL ENLARGEMENT BORDERLINE ECG No significant change from prior electrocardiogram. PREVIOUS TRACING : 07/22/2017 02.45 DOCTOR: Hudson Sands Interpretating Date/Time 07/22/2017 20:58:27
[2017-07-22 21:44] VITALS: PULSE 65
[2017-07-23 00:23] VITALS: PULSE 71
[2017-07-23 00:42] VITALS: BP 120/58; PULSE 78; RESP 18; TEMP 98.8; O2SAT 97
[2017-07-23 04:01] VITALS: PULSE 60
[2017-07-23 04:32] VITALS: BP 111/61; PULSE 73; RESP 18; TEMP 98.7; O2SAT 97
[2017-07-23] MEDS: SODIUM CHLOR 0.9% 1000 ML INJ 1,000 ML IV SCH (04:44)
[2017-07-23] MEDS ORDERED: TIZA2CAP3 PO (07:49)
[2017-07-23] MEDS ORDERED: TIZA4CAP3 PO (07:49)
[2017-07-23 08:37] VITALS: BP 125/80; PULSE 73; RESP 20; TEMP 97.9; O2SAT 95
[2017-07-23] MEDS ORDERED: REMOVE OLD PATCH T-DERMAL SCH (09:00)
[2017-07-23] MEDS: SODIUM CHLORIDE 0.9% FLUSH 10 ML FLUSH IV FLUSH SCH (09:00)
[2017-07-23] MEDS: NICOTINE 14 MG/24 HR PATCH T-DERMAL SCH (09:02)
[2017-07-23 09:31] LABS: AUTOMATED NEUTROPHIL # 3.8 TH/MM3 (1.8-7.7); BASOPHIL % 0.7 % (0.0-2.0); EOSINOPHIL % 14.8 % (0.0-4.0); HEMATOCRIT 35.8 % (39.0-51.0); HEMO FLAGS DIFF FINAL; LYMPH % 15.1 % (9.0-44.0); MEAN CELL VOLUME 89.8 FL (80.0-100.0); MEAN CORPUSCULAR HEMOGLOBIN 31.1 PG (27.0-34.0); MEAN CORPUSCULAR HGB CONC 34.6 % (32.0-36.0); MONO % 13.8 % (0.0-8.0); NEUT % 55.6 % (16.0-70.0); PLATELET COUNT 196 TH/MM3 (150-450); RED BLOOD COUNT 3.99 MIL/MM3 (4.50-5.90); RED CELL DISTRIBUTION WIDTH 13.9 % (11.6-17.2); WHITE BLOOD COUNT 6.9 TH/MM3 (4.0-11.0)
[2017-07-23] MEDS ORDERED: INFLUENZA VIRUS VACCINE (QUADRIVALENT) 0.5 ML SYR IM ONE (10:00)
[2017-07-23 10:10] LABS: BICARBONATE 26.1 MEQ/L (21.0-32.0); POTASSIUM 3.8 MEQ/L (3.5-5.1)
[2017-07-23] MEDS ORDERED: FAMO40TA PO (10:49)
[2017-07-23 10:50] VITALS: PULSE 59
--- NOTE | 2017-07-23 10:50 | HHI.DCPOC ---
Discharge Care Plan Diagnosis: (1) Atypical chest pain (2) Tobacco dependency (3) Dehydration (4) Acute kidney injury Goals to Promote Your Health * To prevent worsening of your condition and complications * To maintain your health at the optimal level Directions to Meet Your Goals Take your medications as prescribed Follow your dietary instruction Follow activity as directed Keep your appointments as scheduled Take your immunizations and boosters as scheduled If your symptoms worsen call your PCP, if no PCP go to Urgent Care Center or Emergency Room Smoking is Dangerous to Your Health. Avoid second hand smoke Call the 24-hour hour crisis hotline for domestic abuse at Miguel Ángel Lucas MD Jul 23, 2017 10:50
--- NOTE | 2017-07-23 10:52 | HHI.PR ---
Subjective Remarks Patient reports he is feeling great. No chest pain or shortness of breath. Objective Vitals Vital Signs Date Time Temp Pulse Resp B/P (MAP) Pulse Ox O2 Delivery O2 Flow Rate FiO2 07/23/17 10:50 59 07/23/17 08:37 97.9 73 20 125/80 (95) 95 07/23/17 04:32 98.7 73 18 111/61 (78) 97 07/23/17 04:01 60 07/23/17 00:42 98.8 78 18 120/58 (78) 97 07/23/17 00:23 71 07/22/17 21:44 65 07/22/17 20:42 98.3 72 18 120/87 (98) 97 07/22/17 16:50 98.1 75 18 115/72 (86) 96 07/22/17 16:45 I/O 07/22/17 07/22/17 07/22/17 07/23/17 07/23/17 07/23/17 07:00 15:00 23:00 07:00 15:00 23:00 Intake Total 1000 ml Balance 1000 ml Intake IV Total 1000 ml Result Diagram: 07/23/17 0831 07/23/17 0831 Imaging Last Impressions Chest X-Ray 07/22/17 0451 Signed Impressions: Service Date/Time: Saturday, July 22, 2017 05:15 - CONCLUSION: 1. Stable biapical emphysematous changes, particularly on the right. 2. Lungs are otherwise clear without acute infiltrate or effusion. 3. Old healed upper posterior rib fractures on the left Lee Bhandari MD Abdomen/Pelvis CT 07/22/17 0000 Signed Impressions: Service Date/Time: Saturday, July 22, 2017 06:03 - CONCLUSION: 1. Diffuse hepatic fatty infiltration. 2. Old granulomatous disease in the splenic parenchyma. 3. Otherwise, no acute intraperitoneal or pelvic process to explain current clinical symptoms. Lee Bhandari MD Objective Remarks GENERAL: This is a well-nourished, well-developed patient, in no apparent distress. CARDIOVASCULAR: Normal rate and regular rhythm without murmurs, gallops, or rubs. RESPIRATORY: Poor air movement. Clear to auscultation bilaterally. No wheezing or rhonchi. GASTROINTESTINAL: Abdomen soft, non-tender, non-distended. Normal active bowel sounds MUSCULOSKELETAL: Extremities without cyanosis, or edema. NEURO: Alert & Oriented x4 to person, place, time, situation. Moves all ext x4 PSYCH: Appropriate mood and affect. A/P Problem List: (1) Acute kidney injury ICD Code: N17.9 - Acute kidney failure, unspecified Status: Acute Plan: I suspect this is probably related to dehydration. He has been vomiting and states he has been working in the heat. Renal functions recovered with IV fluid. The patient was counseled on proper hydration and to avoid drinking alcohol as this also caused dehydration. (2) Atypical chest pain ICD Code: R07.89 - Atypical chest pain Status: Acute Plan: Likely noncardiac. May be secondary to retching/MSK pain. This has completely resolved. -ACS ruled out with serial cardiac enzymes and EKG. (3) Dehydration ICD Code: E86.0 - Dehydration Status: Acute Plan: Resolved with IV fluid. (4) Tobacco dependency ICD Code: F17.200 - Tobacco dependency Status: Acute Plan: Patient counseled to quit. Discharge Planning Discharge home in good condition Activity: Regular as tolerated Diet: Regular as tolerated Meds: Per med rec Follow-up: With PCP Patient counseled to quit drinking alcohol. His noted that he drinks more than 2 beers as he reported. He was counseled to quit using tobacco. Miguel Ángel Lucas MD Jul 23, 2017 10:52
== END 2017-07-23 11:41 | disposition home or self-care (01) ==
LOC: NEPC 02:40 → INTOOBSV 06:45 → NEDA 06:45 → NEPFCDU 16:35
PROVIDERS: ADMIT Family Medicine; ATTEND Family Medicine
DX: N17.9 Acute kidney failure, unspecified (principal); R07.89 Other chest pain; E86.0 Dehydration; E87.6 Hypokalemia; F17.200 Nicotine dependence, unspecified, uncomplicated; T67.5XXA Heat exhaustion, unspecified, initial encounter; J44.9 Chronic obstructive pulmonary disease, unspecified
CPT/HCPCS: 71010; 74176; 80048; 80053; 82550; 82552; 83690; 84484; 85025; 85610; 85730; 93005; 96361; 96374; 96375; 99285; G0378; J2270; J2405; J7030

== ENCOUNTER 2018-04-18 18:11 | Emergency (ER) | payer MEDICAID ==
[~2018-04-18] VITALS: Ht 180.3 cm; Wt 55.0 kg
[~2018-04-18 18:11] MED LIST changes: +ALBU2TAB4 PO; +AMIT50TA3 PO; +ASPI-147 PO; -CYCL5TAB PO; +FAMO20TA2 PO; +THIA100 PO; +TIZA4CAP3 PO
[2018-04-18 18:23] VITALS: BP 111/64; PULSE 116; RESP 16; TEMP 98.4; O2SAT 95
== END 2018-04-18 20:27 | disposition left against medical advice (07) ==
LOC: NETRI 18:11
DX: Z04.3 Encounter for examination and observation following other accident (principal)
CPT/HCPCS: 99281

== ENCOUNTER 2018-09-20 18:26 | Observation (INO) ==
--- NOTE | 2018-09-20 18:39 | ED ---
HPI General Chief complaint: Chest Pain Stated complaint: Chest Pain Time Seen by Provider: 09/20/18 18:36 History of Present Illness HPI narrative: This is a 58-year-old male with history of tobacco use, COPD, hypertension, coronary artery disease who presents via EMS for evaluation of chest pain. Symptoms started 3-4 hours prior to arrival when he was sitting at home. He describes it as a constant substernal chest pressure which is worse with movement, nothing improves the pain. He reports some chronic mild dyspnea secondary to COPD but denies any acute dyspnea. He does report a cough with clear phlegm production. He denies any abdominal pain, dizziness or lightheadedness, lower extremity edema. He took one nitroglycerin at home and he had one nitroglycerin and 324 mg of aspirin en route with only minimal improvement in his symptoms. Symptoms are moderate. He has no other complaints at this time. Related Data Home Medications Medication Instructions Recorded Confirmed albuterol sulfate [ProAir HFA] 2 puff INHALATION Q4-6H PRN 09/21/18 09/21/18 budesonide-formoterol [Symbicort] 2 puff INHALATION BID 09/21/18 09/21/18 hydrocodone-acetaminophen [[place]] 1 tab PO BID 09/21/18 09/21/18 tizanidine 6 mg PO TID PRN 09/21/18 09/21/18 Allergies Allergy/AdvReac Type Severity Reaction Status Date / Time No Known Allergies Allergy Uncoded 02/24/16 10:25 Review of Systems ROS: all other systems reviewed are negative [facility] Medical History Medical History COPD (chronic obstructive pulmonary disease) (Acute) Emphysema of lung (Acute) Hypertension (Acute) Social History Social History Substance History: No History of Abuse Second Hand Smoke Exposure: Yes Smoking Status: Current every day smoker Tobacco Type: Cigarettes How Often Do You Have a Drink Containing Alcohol: 2 to 3 times a week Exam Narrative Exam Narrative: GENERAL: Well-developed well-nourished male no acute distress answering questions appropriately SKIN: Warm and dry. HEAD: Atraumatic. Normocephalic. EYES: Pupils equal and round. No scleral icterus. No injection or drainage. ENT: No nasal bleeding or discharge. Mucous membranes pink and moist. NECK: Trachea midline. No JVD. CARDIOVASCULAR: Regular rate and rhythm. No murmur appreciated. RESPIRATORY: No accessory muscle use. Faint wheezing bilaterally. No crackles. GASTROINTESTINAL: Abdomen soft, non-tender, nondistended. Hepatic and splenic margins not palpable. MUSCULOSKELETAL: No obvious deformities. No clubbing. No cyanosis. No edema. NEUROLOGICAL: Awake and alert. No obvious cranial nerve deficits. Motor grossly within normal limits. Normal speech. Course Initial Documented Vital Signs Pulse Rate 93 H 09/20/18 18:51 Respiratory Rate 15 09/20/18 18:51 Last Documented Vital Signs Temperature 98.4 F 09/21/18 07:22 Pulse Rate 77 09/21/18 08:00 Respiratory Rate 16 09/21/18 07:22 Blood Pressure 105/66 09/21/18 07:22 Pulse Oximetry 97 09/21/18 07:22 Medical Decision Making IFTIKHAR Attestation IFTIKHAR supervised visit: Yes Attestation: I, Dr. Gordon, have reviewed the advance practice practitioner's documentation and am in agreement, met with the patient face to face, made the diagnosis, and the medical decision making was done by me. *My assessment and Findings: Patient arrives with chest discomfort. He reports coronary artery disease and tobaccoism coupled with a complaint of chest pressure. Troponin negative. EKG reveals sinus rhythm without ST elevation or TWI. Regular rhythm. Rate 85. Occasional wheeze present on exam. Respiratory rate about 18. MDM Narrative Medical decision making narrative: 58-year-old male with substernal chest pressure which started a few hours prior to arrival. The patient was placed on ECG monitoring pulse oximetry. A 12-lead EKG was obtained revealing sinus tachycardia, rate 110, no acute ST elevation. Lab work, chest x-ray ordered. Lab work is been reviewed and found to be reassuring. Initial cardiac enzymes are negative. Alcohol level is elevated at 262. He has multiple risk factors and history of coronary artery disease, at this point time the plan will be to admit him into the chest pain center for serial cardiac enzymes and rule out purposes. He is agreeable. Medical Screen Exam Complete: Yes Emergency Medical Condition: Yes Differential Diagnosis Differential Diagnosis: Acute coronary syndrome, pericarditis, myocarditis, COPD exacerbation, pneumonia, pulmonary embolism, aortic dissection Lab Data Result diagrams: 09/20/18 18:40 09/20/18 18:40 Lab Results 09/20/18 09/20/18 09/20/18 Range/Units 18:40 18:40 18:40 WBC 9.1 (4.0-11.0) th/mm3 RBC 4.50 (4.50-5.90) mil/mm3 Hgb 13.7 (13.0-17.0) gm/dL Hct 41.6 (39.0-51.0) % MCV 92.4 (80.0-100.0) fL MCH 30.4 (27.0-34.0) pg MCHC 32.9 (32.0-36.0) % RDW 14.1 (11.6-17.2) % Plt Count 205 (150-450) th/mm3 MPV 7.8 (7.0-11.0) fL Neut % (Auto) 66.6 (16.0-70.0) % Lymph % (Auto) 16.9 (9.0-44.0) % [place] % (Auto) 10.1 H (0.0-8.0) % Eos % (Auto) 5.8 H (0.0-4.0) % Baso % (Auto) 0.6 (0.0-2.0) % Neut # (Auto) 6.0 (1.8-7.7) th/mm3 Lymph # (Auto) 1.5 (1.0-4.8) th/mm3 [place] # (Auto) 0.9 (0.0-0.9) th/mm3 Eos # (Auto) 0.5 H (0.0-0.4) th/mm3 Baso # (Auto) 0.1 (0.0-0.2) th/mm3 WBC Differential . Differential Comment Auto diff final PT 9.6 L (9.8-11.6) sec INR 0.9 Ratio APTT 26.7 (23.4-31.7) sec Sodium 141 (136-145) meq/L Potassium 3.8 (3.5-5.1) meq/L Chloride 106 (98-107) meq/L Carbon Dioxide 20.9 L (21.0-32.0) meq/L Anion Gap 14 (5-15) meq/L BUN 11 (7-18) mg/dL Creatinine 0.96 (0.60-1.30) mg/dL Estimated GFR 80 L (>89) mL/min Random Glucose 94 (74-106) mg/dL Calcium 8.6 (8.5-10.1) mg/dL Magnesium 1.8 (1.5-2.5) mg/dL Total Bilirubin 0.3 (0.2-1.0) mg/dL AST 26 (15-37) U/L ALT 24 (12-78) U/L Alkaline Phosphatase 56 (45-117) U/L Total Creatine Kinase 245 (39-308) U/L CK-MB (CK-2) 2.3 (0.5-3.6) ng/mL Troponin I Less than 0.02 L (0.02-0.05) ng/mL Total Protein 7.8 (6.4-8.2) g/dL Albumin 4.0 (3.4-5.0) g/dL Serum Alcohol 262 H (0-5) mg/dL 09/20/18 09/20/18 Range/Units 21:10 23:54 WBC (4.0-11.0) th/mm3 RBC (4.50-5.90) mil/mm3 Hgb (13.0-17.0) gm/dL Hct (39.0-51.0) % MCV (80.0-100.0) fL MCH (27.0-34.0) pg MCHC (32.0-36.0) % RDW (11.6-17.2) % Plt Count (150-450) th/mm3 MPV (7.0-11.0) fL Neut % (Auto) (16.0-70.0) % Lymph % (Auto) (9.0-44.0) % [place] % (Auto) (0.0-8.0) % Eos % (Auto) (0.0-4.0) % Baso % (Auto) (0.0-2.0) % Neut # (Auto) (1.8-7.7) th/mm3 Lymph # (Auto) (1.0-4.8) th/mm3 [place] # (Auto) (0.0-0.9) th/mm3 Eos # (Auto) (0.0-0.4) th/mm3 Baso # (Auto) (0.0-0.2) th/mm3 WBC Differential Differential Comment PT (9.8-11.6) sec INR Ratio APTT (23.4-31.7) sec Sodium (136-145) meq/L Potassium (3.5-5.1) meq/L Chloride (98-107) meq/L Carbon Dioxide (21.0-32.0) meq/L Anion Gap (5-15) meq/L BUN (7-18) mg/dL Creatinine (0.60-1.30) mg/dL Estimated GFR (>89) mL/min Random Glucose (74-106) mg/dL Calcium (8.5-10.1) mg/dL Magnesium (1.5-2.5) mg/dL Total Bilirubin (0.2-1.0) mg/dL AST (15-37) U/L ALT (12-78) U/L Alkaline Phosphatase (45-117) U/L Total Creatine Kinase 212 203 (39-308) U/L CK-MB (CK-2) (0.5-3.6) ng/mL Troponin I Less than 0.02 L Less than 0.02 L (0.02-0.05) ng/mL Total Protein (6.4-8.2) g/dL Albumin (3.4-5.0) g/dL Serum Alcohol (0-5) mg/dL Imaging Data Radiologist's impression: Chest X-Ray 09/20/18 18:36 CONCLUSION: No evidence of infiltrate or pneumothorax. Chest CTA 09/20/18 18:41 CONCLUSION: 1. The study is negative for pulmonary embolism. 2. Moderately severe emphysema. Discharge Plan Discharge Disposition Patient Disposition: 30 Still Patient Discharge Condition Condition: Stable Discharge Order Discharge Orders: Discharge Order (Routine); Ordered 09/21/18 Ordered By: Anthony Brunson Discharge Details Anticipated Discharge Date: 09/21/18 Diagnosis: Chest pain Physicians Team ED Provider: Nas Gordon ED Midlevel Provider: Rafal Mendez Primary Care Provider: Judy Bartlett Attending Provider: Kel Keyes Status ED Status: Left Department Discharge Information Discharge Date/Time: 09/20/18 21:57
[2018-09-20] MEDS ORDERED: Morphine Inj 4 MG/ML Vial IV.PUSH ONE (18:41)
--- NOTE | 2018-09-20 19:17 | XR ---
EXAM DATE: 09/20/2018 6:52 PM EST AGE/SEX: 58 years / Male INDICATIONS: Chest pain. CLINICAL DATA: This is the patient's initial encounter. Patient reports that signs and symptoms have been present for 1 day and indicates a pain score of 0/10. MEDICAL/SURGICAL HISTORY: None. None. [place] [facility] [place]. . FINDINGS: A single AP view of the chest demonstrates the lungs to be symmetrically hyperaerated without evidenc e of mass, infiltrate or effusion. Stable configuration to the bullous emphysema in the lung apices. No evidence of pneumothorax. The cardiomediastinal contours are unremarkable. Stable healed bilatera l upper rib fractures.. CONCLUSION: No evidence of infiltrate or pneumothorax. Electronically signed by: Yong Nunes MD 09/20/2018 7:15 PM EST
[2018-09-20 19:43] LABS: Baso # (Auto) 0.1 th/mm3 (0.0-0.2); Baso % (Auto) 0.6 % (0.0-2.0); Eos # (Auto) 0.5 th/mm3 (0.0-0.4); Eos % (Auto) 5.8 % (0.0-4.0); Hematocrit 41.6 % (39.0-51.0); Hemoglobin 13.7 gm/dL (13.0-17.0); Lymph # (Auto) 1.5 th/mm3 (1.0-4.8); Lymph % (Auto) 16.9 % (9.0-44.0); Mean Corpuscular HGB Conc 32.9 % (32.0-36.0); Mean Corpuscular Hemoglobin 30.4 pg (27.0-34.0); Mean Corpuscular Volume 92.4 fL (80.0-100.0); Mean Platelet Volume 7.8 fL (7.0-11.0); Mono # (Auto) 0.9 th/mm3 (0.0-0.9); Mono % (Auto) 10.1 % (0.0-8.0); Neut % (Auto) 66.6 % (16.0-70.0); Platelet Count 205 th/mm3 (150-450); Red Cell Distribution Width 14.1 % (11.6-17.2); White Blood Count 9.1 th/mm3 (4.0-11.0)
[2018-09-20 19:59] LABS: Activated Partial Thrombo Time 26.7 sec (23.4-31.7); INR 0.9 Ratio; Prothrombin Time 9.6 sec (9.8-11.6)
[2018-09-20 20:10] LABS: Alanine Aminotransferase 24 U/L (12-78); Anion Gap 14 meq/L (5-15); Aspartate Aminotransferase 26 U/L (15-37); Blood Urea Nitrogen 11 mg/dL (7-18); Calcium 8.6 mg/dL (8.5-10.1); Carbon Dioxide 20.9 meq/L (21.0-32.0); Chloride 106 meq/L (98-107); Glomerular Filtration Rate 80 mL/min (>89); Glucose,Random 94 mg/dL (74-106); Magnesium 1.8 mg/dL (1.5-2.5); Potassium 3.8 meq/L (3.5-5.1); Sodium 141 meq/L (136-145)
[2018-09-20 20:14] LABS: Alkaline Phosphatase 56 U/L (45-117); Creatine Kinase 245 U/L (39-308); Total Protein 7.8 g/dL (6.4-8.2)
[2018-09-20 20:18] LABS: Alcohol 262 mg/dL (0-5)
[2018-09-20 20:32] LABS: Creatine Kinase MB 2.3 ng/mL (0.5-3.6)
--- NOTE | 2018-09-20 21:05 | CT ---
EXAM DATE: 09/20/2018 9:01 PM EST AGE/SEX: 58 years / Male INDICATIONS: Chest pain. CLINICAL DATA: This is the patient's initial encounter. Patient reports that signs and symptoms have been present for 1 day and indicates a pain score of 4/10. MEDICAL/SURGICAL HISTORY: Chronic obstructive pulmonary disease. Emphysema. Hypertension. None. RADIATION DOSE: 7.70 CTDI (mGy) COMPARISON: . TECHNIQUE: Volumetric scanning was performed using a multi-row detector CT scanner during bolus infu harvey of 65 ml Omnipaque 350 (iohexol) nonionic water-soluble contrast as a single exam dose. The david a was post processed with a variety of visualization algorithms including full volume maximum intensi ty projection and sliding thin slab reformation. Using automated exposure control and adjustment of t he mA and/or kV according to patient size, radiation dose was kept as low as reasonably achievable to obtain optimal diagnostic quality images. DICOM format image data is available electronically for r eview and comparison. FINDINGS: Pulmonary Arteries: No filling defects are seen in the pulmonary arteries out to the subsegmental ve ssels. The left and right pulmonary arteries are normal in diameter. Lung: No infiltrates seen. Subpleural cysts in the upper lungs and a thin wall pulmonary cyst in the lower left lung. Moderate severity centrilobular emphysema. Effusion: None. Mediastinum: No evidence of mediastinal or hilar adenopathy. Other: The axilla is unremarkable. CONCLUSION: 1. The study is negative for pulmonary embolism. 2. Moderately severe emphysema. Electronically signed by: Yong Nunes MD 09/20/2018 9:03 PM EST
[2018-09-20 21:47] LABS: Creatine Kinase 212 U/L (39-308)
[2018-09-21] MEDS ORDERED: Acetaminophen 500 MG Tablet PO PRN (00:23)
[2018-09-21 00:49] LABS: Creatine Kinase 203 U/L (39-308)
[2018-09-21 03:09] VITALS: RESP 16
[2018-09-21 07:24] VITALS: BP 105/66; PULSE 77; TEMP 98.4; O2SAT 97
--- NOTE | 2018-09-21 09:21 | P.HPCA ---
History of Present Illness Service: Chest pain center Primary Care Physician: Judy Bartlett Chief Complaint: Chest pressure History of Present Illness: 58-year-old white male presents with severe chest pressure precipitated as a result of arguments regarding eviction from his current dwelling. Patient has been living with his dogs and his girlfriend and house since June recently David has claimed he has not paid rent had the electrical services turned off and yesterday had them served with eviction notices. This precipitated an emotional issue resulting in the patient complaining that he felt like a truck was parked on his chest he really related this discomfort is 10 out of 10. He took nitroglycerin with no relief subsequently called [facility] on the way to the hospital received additional nitro with only very minimal relief. The pain finally abated late in the evening sometime before midnight. He presented in February with very similar complaints at that time was evaluated including a nuclear stress test was negative. The patient had an accident as a truck packer some years ago and believes that at that time he suffered a heart attack as well. There is no verification of prior coronary disease however he does have severe COPD and alcoholism. He began smoking in the seventh grade continues to smoke to this time in spite of extensive warnings smoking 1-2 packs a day of "rolled my own" cigarettes. He drinks on average of about 4 beers a day. He has medication for his lung disease but is very unclear as to how he supposed to use it and just reports that he uses it whenever he feels like he wants to. He is currently pain-free, demanding a cup of coffee and some food. Review of Systems All other systems reviewed negative except as stated in HPI PMFSH - History History Provided By: Patient, Shift Leader / EMT - Medical History Medical History: Medical History (Last Updated 09/20/18 @ 18:38 by Randa Aleman) COPD (chronic obstructive pulmonary disease) Emphysema of lung Hypertension - Tobacco History Second Hand Smoke Exposure: Yes Tobacco Use In Past 30 Days: Yes Smoking Status: Current every day smoker Tobacco Type: Cigarettes - Alcohol History How Often Do You Have a Drink Containing Alcohol: 2 to 3 times a week - Substance Use History Substance History: No History of Abuse - Immunization History Tetanus Immunization: Unsure Medications and Allergies Active Medications: Active Medications Acetaminophen (Tylenol) 500 mg PO Q4H PRN PRN Reason: FOR HEADACHE Albuterol (Duoneb Neb (Prn)) 1 ampul NEB Q4HR NEB PRN PRN Reason: SHORTNESS OF BREATH/WHEEZING Ondansetron HCl (Zofran Inj) 4 mg IV.PUSH Q6H PRN PRN Reason: NAUSEA Last Admin: 09/21/18 00:29 Dose: 4 mg Sodium Chloride (Ns Flush) 2 ml IV.FLUSH UNSCH PRN PRN Reason: FLUSH AFTER USING IV ACCESS Sodium Chloride (Ns Flush) 2 ml IV.FLUSH PRN PRN PRN Reason: FLUSH AFTER USING IV ACCESS Sodium Chloride (Ns Flush) 2 ml IV.FLUSH BID BRITTANY Last Admin: 09/20/18 22:50 Dose: 2 ml Allergies Allergy/AdvReac Type Severity Reaction Status Date / Time No Known Allergies Allergy Uncoded 02/24/16 10:25 Home Medications Medication Instructions Recorded Confirmed Type albuterol sulfate [ProAir HFA] 2 puff INHALATION Q4-6H PRN 09/21/18 09/21/18 History budesonide-formoterol [Symbicort] 2 puff INHALATION BID 09/21/18 09/21/18 History hydrocodone-acetaminophen [[place]] 1 tab PO BID 09/21/18 09/21/18 History tizanidine 6 mg PO TID PRN 09/21/18 09/21/18 History Exam Vital signs: Vital Signs 09/20/18 18:51 09/20/18 19:25 09/20/18 23:00 Temperature Pulse Rate 93 H 94 H 96 H Respiratory Rate 15 20 Blood Pressure 118/71 Pulse Oximetry 98 09/20/18 23:48 09/21/18 00:00 09/21/18 03:08 Temperature 97.9 F 98.1 F Pulse Rate 102 H 87 84 Respiratory Rate 18 16 Blood Pressure 121/71 111/62 Pulse Oximetry 96 96 09/21/18 04:00 09/21/18 07:22 Temperature 98.4 F Pulse Rate 85 77 Respiratory Rate 16 Blood Pressure 105/66 Pulse Oximetry 97 Intake & Output 09/20/18 09/21/18 09/21/18 18:59 06:59 18:59 Weight 56 kg Other: Weight On Admission 56 kg Narrative: Somewhat thin heavily tattooed white male who seems to be a bit agitated Skin multiple tattoos but warm and dry Head normocephalic atraumatic Eyes PERRLA EOMI sclera looks slightly icteric however labs do not confirm this Mouth mucous membranes moist tongue well papillated upper and lower plates in place no lesions Neck supple no JVD masses nodes or bruits Chest there is a deformity of the left scapula breath sounds are markedly diminished there is a bit of a rhonchi but no rales or wheezes Cardiovascular PMI is not displaced regular sinus rhythm no gallop rub or murmur Abdomen is scaphoid nontender no guarding or rebound Extremities no clubbing cyanosis or edema Neurologically cranial nerves are intact motor is strong to all extremities purposeful movement is appropriate Psychiatric patient appears to be a bit hostile and abrasive but cooperative when he was informed he would be released (may be manipulative but also may want to have created a "bad boy" image Results 09/20/18 18:40 09/20/18 18:40 Cardiac Enzymes 09/20/18 09/20/18 09/20/18 Range/Units 18:40 21:10 23:54 AST 26 (15-37) U/L CK-MB (CK-2) 2.3 (0.5-3.6) ng/mL Troponin I Less than 0.02 L Less than 0.02 L Less than 0.02 L (0.02-0.05) ng/mL Coagulation 09/20/18 Range/Units 18:40 PT 9.6 L (9.8-11.6) sec APTT 26.7 (23.4-31.7) sec CBC 09/20/18 Range/Units 18:40 WBC 9.1 (4.0-11.0) th/mm3 RBC 4.50 (4.50-5.90) mil/mm3 Hgb 13.7 (13.0-17.0) gm/dL Hct 41.6 (39.0-51.0) % Plt Count 205 (150-450) th/mm3 Neut # (Auto) 6.0 (1.8-7.7) th/mm3 Lymph # (Auto) 1.5 (1.0-4.8) th/mm3 [place] # (Auto) 0.9 (0.0-0.9) th/mm3 Eos # (Auto) 0.5 H (0.0-0.4) th/mm3 Baso # (Auto) 0.1 (0.0-0.2) th/mm3 Comprehensive Metabolic Panel 09/20/18 Range/Units 18:40 Sodium 141 (136-145) meq/L Potassium 3.8 (3.5-5.1) meq/L Chloride 106 (98-107) meq/L Carbon Dioxide 20.9 L (21.0-32.0) meq/L BUN 11 (7-18) mg/dL Creatinine 0.96 (0.60-1.30) mg/dL Calcium 8.6 (8.5-10.1) mg/dL AST 26 (15-37) U/L ALT 24 (12-78) U/L Alkaline Phosphatase 56 (45-117) U/L Total Protein 7.8 (6.4-8.2) g/dL Albumin 4.0 (3.4-5.0) g/dL Intake and Output 09/20/18 09/21/18 09/21/18 22:59 06:59 14:59 Other: Weight 56 kg Weight On Admission 56 kg Patient Weight 09/22/18 06:59 Weight 56 kg - Imaging and Cardiology Imaging: Impressions Chest X-Ray 09/20/18 18:36 CONCLUSION: No evidence of infiltrate or pneumothorax. Chest CTA 09/20/18 18:41 CONCLUSION: 1. The study is negative for pulmonary embolism. 2. Moderately severe emphysema. - EKG Interpretation EKG: interpreted by JUSTIN Caprini VTE Risk Assessment Caprini VTE Risk Assessment: No/Low Risk (score <= 1) Caprini Risk Assessment Model: Point Value = 1 Point Value = 2 Point Value = 3 Point Value = 5 Age 41-60 Minor surgery BMI > 25 kg/m2 Swollen legs Varicose veins or History of unexplained or recurrent spontaneous Oral contraceptives or hormone replacement Sepsis (< 1 month) Serious lung disease, including pneumonia (< 1 month) Abnormal pulmonary function Acute myocardial infarction Congestive heart failure (< 1 month) History of inflammatory bowel disease Medical patient at bed rest Age 61-74 Arthroscopic surgery Major open surgery (> 45 min) Laparoscopic surgery (> 45 min) Malignancy Confined to bed (> 72 hours) Immobilizing plaster cast Central venous access Age >= 75 History of VTE Family history of VTE Factor V Leiden Prothrombin [id number] Lupus anticoagulant Anticardiolipin antibodies Elevated serum homocysteine Heparin-induced thrombocytopenia Other congenital or acquired thrombophilia Stroke (< 1 month) Elective arthroplasty Hip, pelvis, or leg fracture Acute spinal cord injury (< 1 month) Prophylaxis Regimen: Total Risk Factor Score Risk Level Prophylaxis Regimen 0-1 Low Early ambulation 2 Moderate Order ONE of the following: *Sequential Compression Device (SCD) *Heparin 5000 units SQ BID 3-4 Higher Order ONE of the following medications: *Heparin 5000 units SQ TID *Enoxaparin/Lovenox 40 mg SQ daily (WT < 150 kg, CrCl > 30 mL/min) *Enoxaparin/Lovenox 30 mg SQ daily (WT < 150 kg, CrCl > 10-29 mL/min) *Enoxaparin/Lovenox 30 mg SQ BID (WT < 150 kg, CrCl > 30 mL/min) AND/OR *Sequential Compression Device (SCD) 5 or more Highest Order ONE of the following medications: *Heparin 5000 units SQ TID (Preferred with Epidurals) *Enoxaparin/Lovenox 40 mg SQ daily (WT < 150 kg, CrCl > 30 mL/min) *Enoxaparin/Lovenox 30 mg SQ daily (WT < 150 kg, CrCl > 10-29 mL/min) *Enoxaparin/Lovenox 30 mg SQ BID (WT < 150 kg, CrCl > 30 mL/min) AND *Sequential Compression Device (SCD) Assessment and Plan - Plan This patient was previously evaluated in the chest pain center in February of this year including a nuclear stress test which was negative. He is ruled out currently with 3 sets of enzymes and EKGs. His chest pain was atypical for ischemia and most likely presented as a result of an altercation regarding his eviction from his dwelling. He has severe COPD but in spite of previous counseling continues to smoke heavily and shows no interest in significantly altering his lifestyle. He is basically noncompliant with his medication using them only when he wants to. He seems to be interested in creating a bad way image. It is interesting that he reports 1 of the worst days of his life as losing Víctor Knight and his mother on the same day. The patient is ruled out and will be discharged to further follow-up with his primary care physician at [facility]. Code Status: Full code Discussed Condition With: Condition was discussed with the patient and with the physician registered medical assistant. H&P: Quality - VTE Deep Vein Thrombosis/Pulmonary Embolism Present on Admission: No
[2018-09-21] MEDS ORDERED: ALBUTEROL SULFATE INHALATION PRN (09:31)
[2018-09-21] MEDS ORDERED: TIZANIDINE 6 MG PO PRN (09:31)
--- NOTE | 2018-09-21 11:44 | ECG ---
Date Performed: 09/21/2018 Time Performed: 00:09:47 PTAGE: 58 years EKG: Sinus rhythm NORMAL ECG PREVIOUS TRACING : 09/20/2018 21.21 DOCTOR: Anthony Brunson Interpretating Date/Time 09/21/2018 11:43:26
--- NOTE | 2018-09-21 11:45 | ECG ---
Date Performed: 09/20/2018 Time Performed: 21:21:32 PTAGE: 58 years EKG: Sinus rhythm NORMAL ECG No significant change PREVIOUS TRACING : 09/20/2018 18.34 DOCTOR: Anthony Brunson Interpretating Date/Time 09/21/2018 11:43:59
--- NOTE | 2018-09-21 11:45 | ECG ---
Date Performed: 09/20/2018 Time Performed: 18:34:48 PTAGE: 58 years EKG: SINUS TACHYCARDIA POSSIBLE RIGHT ATRIAL ENLARGEMENT POSSIBLE LEFT ATRIAL ENLARGEMENT ABNORM AL RHYTHM ECG INTERPRETATION BASED ON A DEFAULT AGE OF 40 YEARS Rate increased but otherwise no signi ficant change PREVIOUS TRACING : 02/23/2018 05.33 DOCTOR: Anthony Brunson Interpretating Date/Time 09/21/2018 11:44:55
[2018-09-21] MEDS ORDERED: HYDROCODONE ACETAMINOPHEN PO SCH (21:00)
[2018-09-21] MEDS ORDERED: BUDESONIDE FORMOTEROL INHALATION SCH (21:00)
== END 2018-09-21 11:23 | disposition home or self-care (01) ==
LOC: NEPE 18:26 → NEDA 18:26 → NEPFCDU 21:37
PROVIDERS: ADMIT Internal Medicine Cardiovascular Disease; ATTEND Internal Medicine Cardiovascular Disease